=== PATIENT | female | born 1935 | race Caucasian/White ===

== ENCOUNTER 2018-06-30 12:23 | Day surgery (SDC) | payer OTHER ==
--- OUTSIDE RECORDS SUMMARY | 2018-06-30 12:27 | XMS REPORT ---
:1935 Author Organization eClinicalWorks Care Team Providers Name Role Phone Velasquez, Na Provider Role Unavailable Allergies, Adverse Reactions, Alerts Substance Reaction Event Type N.K.D.A. 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 Assessment Leg pain, right M79.604 Active Assessment Iron deficiency anemia, unspecified D50.9 Active iron deficiency anemia type Assessment Hammer toe of second toe of right M20.41 Active foot Assessment Osteoporosis M81.0 Active Medications Medication Code Code Instructions Start End Date Status Dosage System Date Avapro [facility] 85264438736 300 MG Orally Active 1 tablet Once a day Boniva [facility] 66964001642 150 MG Orally Active 1 tablet once a month [facility] 58544606639 5 MG Orally Once Active 1 tablet a day Crestor [facility] 00812552370 10 MG Orally Active 1 tablet Once a day [facility] 69729802771 5 MG Active TAKE 1 TABLET BY MOUTH EVERY DAY Restasis [facility] 61841341686 0.05 % Active 1 drop into Ophthalmic Twice affected eye a day Results No Known Results Summary Purpose eClinicalWorks Submission
--- OUTSIDE RECORDS SUMMARY | 2018-06-30 12:27 | XMS REPORT ---
:1935 Author Organization eClinicalWorks Care Team Providers Name Role Phone Velasquez, Na Provider Role Unavailable Allergies, Adverse Reactions, Alerts Substance Reaction Event Type N.K.D.A. 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 Problem Iron deficiency anemia, unspecified D50.9 Active iron deficiency anemia type Problem Fibrocystic breast disease N60.19 Active Problem Cataract H26.9 Active Problem Mixed hyperlipidemia E78.2 Active Medications Medication Code Code Instructions Start End Date Status Dosage System Date Restasis [facility]NOTE 3] 67054885544 0.05 % Active 1 drop into Ophthalmic Twice affected eye a day Norvasc [facility][NOTE 3] 80173133888 5 MG Orally Once Active 1 tablet a day Crestor [facility]NOTE 3] 11154746799 10 MG Orally Active 1 tablet Once a day Avapro [facility]NOTE 3] 09285374441 300 MG Orally Active 1 tablet Once a day Boniva [facility]NOTE 3] 50073426246 150 MG Orally Active 1 tablet once a month Results No Known Results Summary Purpose eClinicalWorks Submission
--- OUTSIDE RECORDS SUMMARY | 2018-06-30 12:27 | XMS REPORT ---
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 Problem Iron deficiency anemia, unspecified D50.9 Active iron deficiency anemia type Problem Fibrocystic breast disease N60.19 Active Problem Cataract H26.9 Active Problem Mixed hyperlipidemia E78.2 Active Medications Medication Code Code Instructions Start End Date Status Dosage System Date [facility] 32735243016 5 MG Active TAKE 1 TABLET BY MOUTH EVERY DAY Restasis [facility] 14277877911 0.05 % Active 1 drop into Ophthalmic Twice affected eye a day Boniva [facility] 91011649240 150 MG Orally Active 1 tablet once a month Avapro [facility] 48883440258 300 MG Orally Active 1 tablet Once a day Avapro [facility] 33691585906 300 MG Orally Active 1 tablet Once a day Crestor [facility] 26373094119 10 MG Orally Active 1 tablet Once a day [facility] 50294979890 5 MG Orally Once Active 1 tablet a day Results No Known Results Summary Purpose eClinicalWorks Submission
--- OUTSIDE RECORDS SUMMARY | 2018-06-30 12:27 | XMS REPORT ---
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
--- OUTSIDE RECORDS SUMMARY | 2018-06-30 12:27 | XMS REPORT ---
:1934 Author Organization eClinicalWorks Care Team Providers Name Role Phone Velasquez, Na Provider Role Unavailable Allergies, Adverse Reactions, Alerts Substance Reaction Event Type N.K.D.A. Info Not Available Non Drug Allergy Problems Problem Type Condition Code Onset Dates Condition Status Assessment Osteoporosis M81.0 Active Assessment Hypertension I10 Active Assessment Mixed hyperlipidemia E78.2 Active Assessment Screening mammogram, encounter for Z12.31 Active Assessment Iron deficiency anemia, unspecified D50.9 Active iron deficiency anemia type Problem Osteoporosis M81.0 Active Problem Cataract H26.9 Active Problem Hypertension I10 Active Problem Fibrocystic breast disease N60.19 Active Problem Screening mammogram, encounter for Z12.31 Active Problem Mixed hyperlipidemia E78.2 Active Problem Iron deficiency anemia, unspecified D50.9 Active iron deficiency anemia type Medications Medication Code Code Instructions Start End Status Dosage System Date Date Avapro [facility] 18057370689 300 MG Orally Active 1 tablet Once a day Restasis [facility] 57996094449 0.05 % Active 1 drop into Ophthalmic affected Twice a day eye Boniva [facility] 64811780082 150 MG Orally Oct 24, Active 1 tablet once a month [address] [facility] 82484562916 15 MG/5ML Inactive 5 ml with Orally twice a food or day milk in the morning Valtrex [facility] 32373258023 500 MG Orally Inactive 1 tablet twice a day Norvasc [facility] 34465617974 5 MG Orally Active 1 tablet Once a day Crestor [facility] 66790817707 10 MG Orally Active 1 tablet Once a day Results No Known Results Summary Purpose eClinicalWorks Submission
[2018-06-30] MEDS ORDERED: PHENYLEPHRINE 10% OPTH 5ML ONE (12:42)
[2018-06-30] MEDS ORDERED: CYCLOPENTOLATE 1% OPTH 2 ML ONE (12:42)
[2018-06-30] MEDS ORDERED: NA CHLORIDE 0.9% 500 ML ONE (12:42)
[2018-06-30] MEDS ORDERED: CYCLOPENTOLATE 1% OPTH 2 ML OPTH ONE ×2 (12:45→12:50)
[2018-06-30] MEDS ORDERED: PHENYLEPHRINE 10% OPTH 5ML OPTH ONE ×2 (12:45→12:50)
[2018-06-30] MEDS ORDERED: MOXIFLOXACIN HCL 10 DROPS/ML **OR USE OPTH ONE (12:47)
[2018-06-30] MEDS ORDERED: DUOVISC 1 KIT OPTH ONE (12:48)
[2018-06-30] MEDS ORDERED: EPINEPHRINE/PF 1 MG/ML AMP ONE (12:48)
[2018-06-30] MEDS ORDERED: BALANCED SALT IRRIG PLAIN 500 ML BTL IRR ONE (12:48)
[2018-06-30] MEDS ORDERED: NS 0.9% VIAL 10 ML ONE (12:48)
[2018-06-30] MEDS: TETRACAINE HCL 0.5% 4ML OPTH ONE ×2 (12:53→14:22)
[2018-06-30] MEDS: BUPIVACAINE 0.25% PF 10 ML VIAL ONE ×2 (12:53→14:23)
[2018-06-30] MEDS: LIDOCAINE 2% MPF 5 ML VIAL ONE ×2 (12:53→14:23)
[2018-06-30] MEDS ORDERED: LIDOCAINE 2% MPF 5 ML VIAL ONE (14:07)
[2018-06-30] MEDS ORDERED: PROPOFOL 200 MG/20 ML VIAL IV ONE (14:07)
--- NOTE | 2018-06-30 15:09 | P.BOP ---
Preoperative diagnosis: Nuclear sclerotic and posterior subcapsular cataract OS Postoperative diagnosis: Same Primary procedure: Phacoemulsification with IOL OS Estimated blood loss: None Anesthesia: Local (Subtenon's infusion with anesthesia for cataract surgery) Complications: None Implants: SN60WF +24.0 Transferred to: Other (Day surgery) Condition: Good
[2018-06-30] MEDS ORDERED: TRYPAN BLUE 0.5 ML SYR OPTH ONE (15:34)
--- NOTE | 2018-07-01 00:19 | OP ---
Date of Procedure: 06/30/2018 Surgeon: Farheen Obrien MD Anesthesiologist: Irasema Kahn CRNA and Gael Stiles MD. Preoperative Diagnoses: Nuclear sclerotic and posterior subcapsular cataract, left eye. Operation Performed: Phacoemulsification with intraocular lens implant, left eye. Anesthesia: Per cataract surgery. Complications: None. Description Of Procedure: In day surgery, the patient was prepped with Betadine and draped. A conju nctival incision was made in the inferior nasal quadrant with Candido scissors. A sub-Tenon block c onsisting of a 1:1 mixture of 2% Xylocaine and 0.25% bupivacaine was placed through the conjunctival incision with a blunt cannula. A Honan balloon was placed over the eye and the patient was transferr ed to the operating room. In the operating room the patient was prepped and draped in the usual sterile fashion for ophthalmic surgery. A lid speculum was placed in the left eye. Two paracentesis sites were made superiorly and inferiorly in the limbal cornea. Viscoat was placed in the anterior chamber and a crescent blade wa s used to make a corneal groove and tunnel, and a keratome was used to enter the anterior chamber. P rovisc was placed in the anterior chamber and a 360 degree capsulotomy was performed with a cystitome . The lens was hydrodissected with BSS and rotated freely. The lens was removed with a stop and cho p technique. 7.72 phaco CDE was used to remove the lens. Residual cortex was removed with the irrig ation and aspiration. Provisc was placed in the capsular bag. A SN60WF +24.0 lens was placed in the capsular bag without complications. Irrigation and aspiration was used to remove residual viscoelas tic. The paracentesis sites were hydrated with BSS. The wound and paracentesis sites were inspected and found to be watertight. Vigamox 0.07 cc was placed intracamerally at the end of the procedure. The eye was irrigated with balanced salt solution. The eye was patched with a soft cotton patch and Kerr metal shield. The patient was returned to day surgery in good condition. Comments: The lens was hydrodelineated rather than hydrodissected. Trace residual PSC remained at t he end of the procedure. Discharge Instructions: The patient is discharged to home in good condition and is to follow up with Dr. Obrien in the morning. PATRICIA/NELLY Voice ID: [id number] Report ID: [id number]
== END 2018-06-30 14:50 | disposition home or self-care (01) ==
LOC: OR 12:23
PROVIDERS: ATTEND Ophthalmology Retina Specialist
PROC: 08RK3JZ Replacement of Left Lens with Synthetic Substitute, Percutaneous Approach (ICD-10-PCS; principal; 2018-06-30 12:00)
DX: H25.12 Age-related nuclear cataract, left eye (principal); H25.042 Posterior subcapsular polar age-related cataract, left eye; H04.123 Dry eye syndrome of bilateral lacrimal glands; H35.3130 Nonexudative age-related macular degeneration, bilateral, stage unspecified
CPT/HCPCS: 66984; J2704; J0171

== ENCOUNTER 2019-11-09 09:55 | Emergency (ER) | payer OTHER ==
--- OUTSIDE RECORDS SUMMARY | 2019-11-09 10:26 | XMS REPORT ---
:1935 Author Organization eClinicalWorks Care Team Providers Name Role Phone Velasquez, Na Provider Role Unavailable Allergies, Adverse Reactions, Alerts Substance Reaction Event Type N.K.D.A. 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 Problem Iron deficiency anemia, unspecified D50.9 Active iron deficiency anemia type Problem Fibrocystic breast disease N60.19 A ctive Problem Cataract H26.9 Active Problem Mixed hyperlipidemia E78.2 Active Medications Medication Code Code Instructions Start End Date Status [facility]osage [facility] 5 MG Orally Once Active 1 t ablet a day Boniva [facility] 03094060621 150 MG Orally Active 1 tabl et once a month Restasis [facility] 91901550984 0.05 % Active 1 drop into Ophthalmic Twice affecte d eye a day Crestor [facility] 55555043102 10 MG Orally Active 1 table t Once a day Avapro [facility] 25424814729 300 MG Orally Active 1 tabl et Once a day Irbesartan [facility] 76608291643 300 MG Active TAKE 1 TABLET BY MOUTH EVERY DAY Avapro [facility] 73358948220 300 MG Orally Active 1 tabl et Once a day Results No Known Results Summary Purpose eClinicalWorks Submission
--- OUTSIDE RECORDS SUMMARY | 2019-11-09 10:26 | XMS REPORT | Continuity of Care Document ---
:1935 Author Organization [facility] t Address [address] [place] [address] Care Team Providers Name Role Phone Unavailable Unavailable Unavailable Problems Condition Condition Condition Status Onset Resolution Last Treating Co mments Source Name Details Category Date Date Treatment Clinician Date Osteoporos Osteoporos Problem Active [facility] Hypertensi Hypertensi Problem Active [facility] Mixed Mixed Problem Active [facility] hyperlipid hyperlipid Aliyah kes - emia emia [facility] Screening Screening Problem Active [facility] mammogram, mammogram, Aliyah kes - encounter encounter Geovani darron for for l [facility] ent [facility] Iron Iron Problem Active [facility] deficiency deficiency Aliyah kes - anemia, anemia, Memoria unspecifie unspecifie l d iron d iron [facility] deficiency deficiency en t anemia anemia Clinics type type Cataract Cataract Problem Active [facility] Fibrocysti Fibrocysti Problem Active [facility] breast c breast [facility] disease disease [facility] Symptomati Symptomati Problem Active [facility] spider c spider [facility] varicose varicose [facility] a vein vein l [facility]ics Synovial Synovial Diagnosis Active [facility] cyst of cyst of [facility] ankle and ankle and Geovani darron foot foot l region region [facility] ent Clinics Allergies, Adverse Reactions, Alerts This patient has no known allergies or adverse reactions. Medications Ordered Filled Start Stop Current Ordering Indication Dosage Frequency Signature Comments Components Source Medication Medication Date Date Medication? Clinician (SIG) Name Name Restasis Restasis Yes Na Velasquez [address] [facility] Avapro Avapro Yes Na Velasquez [address] [facility] Crestor Crestor Yes Na Velasquez [address] [facility] Avapro Avapro Yes Na Velasquez [address] [facility] Yes Na Velasquez [address] [facility] Boniva Boniva Yes Na Velasquez [address] [facility] Irbesartan Irbesartan Yes Na Velasquez TAKE [address] [facility] [facility] TABLET BY [facility] EVERY DAY l Outpati ent Clinics Crestor Crestor Yes Na Velasquez [address] [facility] Yes Na Velasquez [address] [facility] Boniva Boniva Yes Na Velasquez [address] [facility] Procedures This patient has no known procedures. Encounters Start End Encounter Admission Attending Care Care Encounter Source Date/Time Date/Time Type Type Clinicians Facility Department ID 2019-10-02 2019-10-02 [facility] [id number] [facility] 13[facility] 13:20:00 [facility] [email or web address] [facility] Medicine Medicine Outpati ent Clinics 2019-10-02 2019-10-02 [facility] [id number] 13:00:00 13:00:00 [employer] [facility] Medicine Medicine Outpati ent Clinics 2019-04-14 2019-04-14 [facility] [id number] 08:40:00 08:40:00 [employer] [facility] Medicine l Medicine Outpati ent Clinics 2018-11-12 2018-11-12 [facility] [id number] [facility] 13:33:00 13:33:00 t [email or web address] [facility] Medicine l Medicine Outpati ent Clinics 2018-10-15 2018-10-15 [facility] [id number] 09:40:00 09:40:00 [employer] [facility] Medicine Medicine Outpati ent Clinics 2018-07-10 2018-07-10 [facility] [id number] 08:40:00 08:40:00 t [email or web address] [facility] Medicine Outpati ent Clinics 2018-05-15 2018-05-15 [facility] [id number] 08:45:00 08:45:00 t [email or web address] [facility] Medicine Outpati ent Clinics 2018-05-06 2018-05-06 [facility] [id number] 10:09:00 10:09:00 t [email or web address] [facility] Medicine Outpati ent Clinics 2018-03-25 2018-03-25 [facility] [id number] 09:06:00 09:06:00 t [email or web address] [facility] Medicine Outpati ent Clinics 2017-09-10 2017-09-10 [facility] [id number] 08:15:00 08:15:00 t [email or web address] [facility] Medicine Outpati ent Clinics 2017-07-12 2017-07-12 [facility] [id number] 09:00:00 09:00:00 t [email or web address] [facility] Medicine Outpati ent Clinics Results This patient has no known results.
--- OUTSIDE RECORDS SUMMARY | 2019-11-09 10:26 | XMS REPORT ---
:1935 Author Organization eClinicalWorks Care Team Providers Name Role Phone Velasquez, Na Provider Role Unavailable Allergies, Adverse Reactions, Alerts Substance Reaction Event Type N.K.D.A. 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 Problem Iron deficiency anemia, unspecified D50.9 Active iron deficiency anemia type Problem Fibrocystic breast disease N60.19 A ctive Problem Cataract H26.9 Active Problem Mixed hyperlipidemia E78.2 Active Medications Medication Code Code Instructions Start End Date Status Dosage System Date Avapro [facility] 77468303985 300 MG Orally Active 1 tabl et Once a day [facility] 23587317489 5 MG Orally Once Active 1 t ablet a day [facility] 46487351067 10 MG Orally Active 1 table t Once a day Avapro [facility] 53404396163 300 MG Orally Active 1 tabl et Once a day Crestor [facility] 66896065639 10 MG Orally Active 1 table t Once a day [facility] 73438723051 5 MG Orally Once Active 1 t ablet a day Boniva [facility] 10467390303 150 MG Orally Active 1 tabl et once a month Irbesartan [facility] 07471350790 300 MG Active TAKE 1 TABLET BY MOUTH EVERY DAY Boniva [facility] 88862048691 150 MG Orally Active 1 tabl et once a month Restasis [facility] 24027970813 0.05 % Active 1 drop into Ophthalmic Twice affecte d eye a day Results No Known Results Summary Purpose eClinicalWorks Submission
[2019-11-09 10:43] LABS: Absolute Lymphocytes (CBC) 1.1 K/uL (0.7-4.9); Basophils % 0.7 % (0-1.3); Hematocrit 38.4 % (36.0-45.0); Lymphocytes % 17.4 % (15.3-44.8); RBC Red Blood Cell Count 3.94 M/uL (3.86-4.86)
[2019-11-09 10:46] LABS: Protime INR 0.94
[2019-11-09] MEDS ORDERED: NA CHLORIDE 0.9% 250 ML ONE (10:54)
[2019-11-09 11:06] LABS: ALT/SGPT 21 U/L (12-78); AST/SGOT 29 U/L (15-37); Albumin 3.9 g/dL (3.4-5.0); Alkaline Phosphatase 72 U/L (45-117); BUN Blood Urea Nitrogen 16 mg/dL (7-18); Bicarbonate 27 mmol/L (21-32); Bilirubin Direct 0.2 mg/dL (0-0.2); Bilirubin Total 0.6 mg/dL (0.2-1.0); Glucose Level 111 mg/dL (74-106); Magnesium 2.2 mg/dL (1.8-2.4); NT PRO-BNP 245 pg/mL (<450); Protein, Total 7.8 g/dL (6.4-8.2); Sodium Level 137 mmol/L (136-145); Troponin (Emerg Dept Use Only) < 0.02 ng/mL (0.0-0.045)
--- NOTE | 2019-11-09 11:12 | RAD REPORT ---
EXAM DESCRIPTION: RAD - Chest Single View - 11/09/2019 10:59 am CLINICAL HISTORY: Dyspnea;Palpitations Chest pain. COMPARISON: No comparisons FINDINGS: Portable technique limits examination quality. The lungs are emphysematous but grossly clear. The heart is normal in size. No displaced fractures. IMPRESSION: COPD.
--- NOTE | 2019-11-09 12:42 | ER ---
Nurse's Notes [facility] Name: Suze Briceno Age: 84 yrs Sex: Female : 1935 Arrival Date: 11/09/2019 Time: 10:06 Bed 2 Private MD: Diagnosis: Tachycardia, unspecified Presentation: 11/08 10:08 Chief complaint: EMS states: was at rehab and was fixing to get discharged but HR was em 145-150, has no shortness of breath or chest pain, pt states she feels fine, denies Hx of AFib. Coronavirus screen: Client denies travel out of the [place] in the last 14 days. Ebola Screen: Patient negative for fever greater than or equal to 101.5 degrees Fahrenheit, and additional compatible Ebola Virus Disease symptoms Patient denies exposure to infectious person. Patient denies travel to an Ebola-affected area in the 21 days before illness onset. No symptoms or risks identified at this time. Initial Sepsis Screen: Does the patient meet any 2 criteria? HR > 90 bpm. Does the patient have a suspected source of infection? No. Patient's initial sepsis screen is negative. Risk Assessment: Do you want to hurt yourself or someone else? Patient reports no desire to harm self or others. Onset of symptoms. Onset of symptoms was November 09, 2019. 10:08 Method Of Arrival: EMS: [facility] em 10:08 Acuity: STEFAN 2 em Historical: - Allergies: 10:16 No Known Allergies; em - Home Meds: 10:16 amlodipine 5 mg tab 1 tab once daily [Active]; irbesartan 300 mg oral tab 1 tab once em daily [Active]; rosuvastatin 10 mg oral tab 1 tab once daily [Active]; - PMHx: 10:16 Hypertension; em - PSHx: 10:16 Appendectomy; Hysterectomy; em - Immunization history:: Adult Immunizations up to date. - Social history:: Smoking status: Patient denies any tobacco usage or history of. Screenin:20 Abuse screen: Denies threats or abuse. Nutritional screening: No deficits noted. em Tuberculosis screening: No symptoms or risk factors identified. Fall Risk None identified. Assessment: 10:08 General: Appears in no apparent distress. comfortable, Behavior is calm, cooperative, em appropriate for age, Denies fever. Pain: Denies pain. Neuro: Level of Consciousness is awake, alert, obeys commands, Oriented to person, place, time, situation, Appropriate for age. Cardiovascular: Denies chest pain, nausea, shortness of breath, Capillary refill < 3 seconds Patient's skin is warm and dry. Rhythm is sinus tachycardia. Respiratory: Airway is patent Respiratory effort is even, unlabored, Respiratory pattern is regular, symmetrical. GI: Abdomen is flat. Derm: Skin is intact, is healthy with good turgor, Skin is pink, warm \T\ dry. Musculoskeletal: Capillary refill < 3 seconds, Range of motion: intact in all extremities. 11:30 Reassessment: Patient appears in no apparent distress at this time. Patient and/or em family updated on plan of care and expected duration. Pain level reassessed. Patient is alert, oriented x 3, equal unlabored respirations, skin warm/dry/pink. 12:41 Reassessment: Patient appears in no apparent distress at this time. Patient and/or em family updated on plan of care and expected duration. Pain level reassessed. Patient is alert, oriented x 3, equal unlabored respirations, skin warm/dry/pink. Vital Signs: 10:08 BP 193 / 99; Pulse 103; Resp 18; Temp 98.6(O); Pulse Ox 100% on R/A; Pain 0/10; em 10:18 BP 188 / 87 LA Supine; Pulse 98; Resp 16; Pulse Ox 100% on R/A; dh3 10:20 BP 158 / 90 LA Sitting; Pulse 103; Resp 18; Pulse Ox 100% on R/A; dh3 10:22 BP 141 / 97 LA Standing; Pulse 103; Resp 19; Pulse Ox 100% on R/A; dh3 11:30 BP 163 / 92; Pulse 98; Resp 18; Pulse Ox 100% on R/A; em 12:41 BP 166 / 87; Pulse 95; Resp 18; Pulse Ox 100% on R/A; em ED Course: 10:06 Patient arrived in ED. em 10:08 Maintain EMS IV. Dressing intact. Good blood return noted. Site clean \T\ dry. Gauge \T\ em site: 20 RAC. 10:09 Tyrese Sheikh MD is Attending Physician. kdr 10:14 Triage completed. em 10:16 Arm band placed on. em 10:19 Salvador Salter, RN is Primary Nurse. em 10:20 Patient has correct armband on for positive identification. Placed in gown. Bed in low em position. Call light in reach. Side rails up X2. threat monitoring analyst on. Pulse ox on. NIBP on. 10:25 EKG done, by ED staff, reviewed by Tyrese Sheikh MD. [facility] 10:28 Initial lab(s) drawn, by nc, sent to lab. Inserted saline lock: 20 gauge in left dh3 antecubital area, using aseptic technique. Blood collected. 10:59 XRAY Chest (1 view) In Process Unspecified. EDMS 11:15 IV discontinued, intact, bleeding controlled, No redness/swelling at site. Pressure 3 dressing applied, to right ac. 12:52 No provider procedures requiring assistance completed. IV discontinued, intact, em bleeding controlled, No redness/swelling at site. Pressure dressing applied. Administered Medications: 10:48 Drug: NS 0.9% 250 ml Route: IV; Rate: bolus; Site: left antecubital; em 12:53 Follow up: IV Status: Completed infusion; IV Intake: 250ml em Intake: 12:53 IV: 250ml; Total: 250ml. em Outcome: 12:41 Discharge ordered by . kdr 12:52 Discharged to home via wheelchair. em 12:52 Condition: good 12:52 Discharge instructions given to patient, Instructed on discharge instructions, follow up and referral plans. Demonstrated understanding of instructions, follow-up care. 13:00 Patient left the ED. em Signatures: Dispatcher [employer] Tyrese Meier MD MD [facility] Salvador Salter, RN RN [place] [id number]
--- NOTE | 2019-11-09 12:43 | EDPHYS ---
Physician Documentation [facility] Name: Szue Briceno Age: 84 yrs Sex: Female : 1935 Arrival Date: 11/09/2019 Time: 10:06 Bed 2 Private MD: ED Physician Tyrese Sheikh HPI: 11/08 10:37 This 84 yrs old Female presents to ER via EMS with complaints of tachy. kdr 10:37 The patient presents with a history of heart racing. Context: The symptoms occur at kdr rest, with exercise, The patient had been up to rehab this morning and as they were About to discharge her, they noted that her HR was elevated.. She had not had this before with her rehab sessions. She had no awareness of her heart rate being accelerated. She had no associated s/s and no other focal or global concerns. Onset: The symptoms/episode began/occurred suddenly, just prior to arrival. Duration: The patient or guardian reports a single episode, that is now resolved. Modifying factors: The symptoms are aggravated by nothing. The symptoms are alleviated by nothing. Associated signs and symptoms: The patient has no apparent associated signs or symptoms. Severity of symptoms: At their worst the symptoms were mild moderate just prior to arrival, in the emergency department the symptoms have resolved. The patient has not experienced similar symptoms in the past. The patient has not recently seen a physician. Historical: - Allergies: 10:16 No Known Allergies; em - Home Meds: 10:16 amlodipine 5 mg tab 1 tab once daily [Active]; irbesartan 300 mg oral tab 1 tab once em daily [Active]; rosuvastatin 10 mg oral tab 1 tab once daily [Active]; - PMHx: 10:16 Hypertension; em - PSHx: 10:16 Appendectomy; Hysterectomy; em - Immunization history:: Adult Immunizations up to date. - Social history:: Smoking status: Patient denies any tobacco usage or history of. ROS: 10:37 Constitutional: Negative for fever, chills, and weight loss, Eyes: Negative for injury, kdr pain, redness, and discharge, ENT: Negative for injury, pain, and discharge, Neck: Negative for injury, pain, and swelling, Cardiovascular: Negative for chest pain, palpitations, and edema, Respiratory: Negative for shortness of breath, cough, wheezing, and pleuritic chest pain, Abdomen/GI: Negative for abdominal pain, nausea, vomiting, diarrhea, and constipation, Back: Negative for injury and pain, : Negative for injury, bleeding, discharge, and swelling, MS/Extremity: Negative for injury and deformity, Skin: Negative for injury, rash, and discoloration, Neuro: Negative for headache, weakness, numbness, tingling, and seizure activity. Psych: Negative for depression, anxiety, suicide ideation, homicidal ideation, and hallucinations, Allergy/Immunology: Negative for hives, rash, and allergies, Endocrine: Negative for neck swelling, polydipsia, polyuria, polyphagia, and marked weight changes, Hematologic/Lymphatic: Negative for swollen nodes, abnormal bleeding, and unusual bruising. 10:37 Cardiovascular: Positive for palpitations, The patient did not have any sense that her HR was elevated. Exam: 10:37 Constitutional: This is a well developed, well nourished patient who is awake, alert, kdr and in no acute distress. Head/Face: Normocephalic, atraumatic. Eyes: Pupils equal round and reactive to light, extra-ocular motions intact. Lids and lashes normal. Conjunctiva and sclera are non-icteric and not injected. Cornea within normal limits. Periorbital areas with no swelling, redness, or edema. Neck: Trachea midline, no thyromegaly or masses palpated, and no cervical lymphadenopathy. Supple, full range of motion without nuchal rigidity, or vertebral point tenderness. No Meningismus. Chest/axilla: Normal chest wall appearance and motion. Nontender with no deformity. No lesions are appreciated. Cardiovascular: Regular rate and rhythm with a normal S1 and S2. No gallops, murmurs, or rubs. Normal PMI, no JVD. No pulse deficits. Respiratory: Lungs have equal breath sounds bilaterally, clear to auscultation and percussion. No rales, rhonchi or wheezes noted. No increased work of breathing, no retractions or nasal flaring. Abdomen/GI: Soft, non-tender, with normal bowel sounds. No distension or tympany. No guarding or rebound. No evidence of tenderness throughout. Back: No spinal tenderness. No costovertebral tenderness. Full range of motion. Skin: Warm, dry with normal turgor. Normal color with no rashes, no lesions, and no evidence of cellulitis. MS/ Extremity: Pulses equal, no cyanosis. Neurovascular intact. Full, normal range of motion. Neuro: Awake and alert, GCS 15, oriented to person, place, time, and situation. Cranial nerves II-XII grossly intact. Motor strength 5/5 in all extremities. Sensory grossly intact. Cerebellar exam normal. Normal gait. Psych: Awake, alert, with orientation to person, place and time. Behavior, mood, and affect are within normal limits. 10:37 ECG was reviewed by the Attending Physician. Vital Signs: 10:08 BP 193 / 99; Pulse 103; Resp 18; Temp 98.6(O); Pulse Ox 100% on R/A; Pain 0/10; em 10:18 BP 188 / 87 LA Supine; Pulse 98; Resp 16; Pulse Ox 100% on R/A; dh3 10:20 BP 158 / 90 LA Sitting; Pulse 103; Resp 18; Pulse Ox 100% on R/A; dh3 10:22 BP 141 / 97 LA Standing; Pulse 103; Resp 19; Pulse Ox 100% on R/A; dh3 11:30 BP 163 / 92; Pulse 98; Resp 18; Pulse Ox 100% on R/A; em 12:41 BP 166 / 87; Pulse 95; Resp 18; Pulse Ox 100% on R/A; em MDM: 12:41 Patient medically screened. kdr 13:35 Data reviewed: vital signs, nurses notes, lab test result(s), radiologic studies. kdr Counseling: I had a detailed discussion with the patient and/or guardian regarding: the historical points, exam findings, and any diagnostic results supporting the discharge/admit diagnosis, lab results, radiology results, the need for outpatient follow up. 11/08 10:10 Order name: Basic Metabolic Panel; Complete Time: 12:40 kdr 11/08 10:10 Order name: CBC with Diff; Complete Time: 12:40 kdr 11/08 10:10 Order name: LFT's; Complete Time: 12:40 kdr 11/08 10:10 Order name: Magnesium; Complete Time: 12:40 kdr 11/08 10:10 Order name: NT PRO-BNP; Complete Time: 12:40 kdr 11/08 10:10 Order name: PT-INR; Complete Time: 12:40 kdr 11/08 10:10 Order name: Troponin (emerg Dept Use Only); Complete Time: 12:40 [facility] 11/08 10:10 Order name: XRAY Chest (1 view); Complete Time: 12:40 [facility] 11/08 10:10 Order name: EKG; Complete Time: 10: [facility] 11/08 10:10 Order name: Cardiac monitoring; Complete Time: [facility] 11/08 10:10 Order name: EKG - Nurse/Tech; Complete Time: [facility] 11/08 10:10 Order name: IV Saline Lock; Complete Time: [facility] 11/08 10:10 Order name: Labs collected and sent; Complete Time: [facility] 11/08 10:10 Order name: O2 Per Protocol; Complete Time: [facility] 11/08 10:10 Order name: O2 Sat Monitoring; Complete Time: [facility] 11/08 10:32 Order name: Orthostatic Blood Pressure; Complete Time: 10:37 kdr EC:37 Rate is 100 beats/min. Rhythm is regular, Normal Sinus Rhythm with No ectopy. QRS [place] kdr is Normal. MS interval is normal. QRS interval is normal. QT interval is normal. Clinical impression: Abnormal EKG without significant change. Administered Medications: 10:48 Drug: NS 0.9% 250 ml Route: IV; Rate: bolus; Site: left antecubital; em 12:53 Follow up: IV Status: Completed infusion; IV Intake: 250ml em Disposition: 11/09/19 12:41 Discharged to Home. Impression: Tachycardia, unspecified. - Condition is Stable. - Discharge Instructions: Hypertension, Sinus Tachycardia. - Medication Reconciliation Form, Thank You Letter form. - Follow up: Private Physician; When: 2 - 3 days; Reason: If symptoms return, Further diagnostic work-up, Recheck today's complaints, Continuance of care, Re-evaluation by your physician. - Problem is new. - Symptoms are resolved. Signatures: Dispatcher [employer] EDMS Tyrese Sheikh MD MD kdr Salvador Salter RN RN em Corrections: (The following items were deleted from the chart) 13:00 12:41 11/09/2019 12:41 Discharged to Home. Impression: Tachycardia, unspecified. em Condition is Stable. Forms are Medication Reconciliation Form, Thank You Letter, Antibiotic Education, Prescription Opioid Use. Follow up: Private Physician; When: 2 - 3 days; Reason: If symptoms return, Further diagnostic work-up, Recheck today's complaints, Continuance of care, Re-evaluation by your physician. Problem is new. Symptoms are resolved. kdr
--- NOTE | 2019-11-10 10:46 | EKG ---
Test Date: 2019-11-09 Test Time: 10:08:38 Trim Setter: SHANTA MEASUREMENT RESULTS: Intervals: Rate: 100 FL: 196 QRSD: 94 QT: 342 QTc: 441 [place]: P: 70 FL: 196 QRS: -11 T: 58 INTERPRETIVE STATEMENTS: Normal sinus rhythm Possible Left atrial enlargement Septal infarct, age undetermined Abnormal ECG Compared to ECG 04/10/2017 10:52:01 First degree AV block no longer present Myocardial infarct finding still present Electronically Signed On 11-10-19 10:43:49 CDT by Gonzalez Romero
[2019-11-13 23:31] VITALS: TEMP 98.6; O2SAT 100
[2019-11-13 23:37] VITALS: BP 166/87
== END 2019-11-09 13:00 | disposition home or self-care (01) ==
LOC: ER 09:55
DX: R00.0 Tachycardia, unspecified (principal); I10 Essential (primary) hypertension
CPT/HCPCS: 96365; 93005; 85025; 80048; 36415; 83735; 85610; 80076; 84484; 83880; 71045; 99285; 96366; J7050